=== PATIENT | female | born 1965 | race African-American/Black ===

== ENCOUNTER 2016-07-28 05:37 | Day surgery (SDC) | payer BC ==
--- NOTE | ~2016-07-28 | EGD ---
EGD REPORT [facility] [address] [place] [place] [address] NAME: ALVIN OSORIO : [birth year] STATUS : REG [facility] PAT#: [id number] AGE: 50 ADM/REG DATE : 07/28/16 MR#: [id number] REPORT SERV DATE: 07/28/16 DICTATED BY: KRISTIN BARON DATE: 07/28/16 REPORT STATUS : Draft TRANSCRIBED BY: [facility] DATE: 07/28/16 Endoscopy Center Patient Name: Alvin Osorio Date of : 1965 Attending MD: BRYANNA BARON MD Procedure Date No Time: 07/28/2016 Procedure: Upper GI endoscopy Indications: Hereditary nonpolyposis colorectal cancer (Tran Syndrome) Referring MD: REESE MARIN Medicines: See the Anesthesia note for documentation of the administered medications Complications: No immediate complications. Estimated blood loss: Minimal. Procedure: Pre-Anesthesia Assessment: - ASA Grade Assessment: III - A patient with severe systemic disease. - Prior to the procedure, a History and Physical was performed, and patient medications and allergies were reviewed. The patient's tolerance of previous anesthesia was also reviewed. The risks and benefits of the procedure and the sedation options and risks were discussed with the patient. All questions were answered, and informed consent was obtained. Prior Anticoagulants: The patient has taken aspirin, last dose was 1 day prior to procedure. After reviewing the risks and benefits, the patient was deemed in satisfactory condition to undergo the procedure. After obtaining informed consent, the endoscope was passed under direct vision. Throughout the procedure, the patient's blood pressure, pulse, and oxygen saturations were monitored continuously. The GIF [id number] was introduced through the mouth, and advanced to the third part of duodenum. The upper GI endoscopy was accomplished without difficulty. The patient tolerated the procedure well. Findings: A few diminutive sessile polyps with were found in the third part of the duodenum. The polyp was removed with a cold biopsy forceps. Resection and retrieval were complete. There is no endoscopic evidence of any abnormality of the ampulla at 2nd part of the duodenum. Two small sessile polyps with no stigmata of recent bleeding were found in the gastric fundus. These polyps were removed with a cold biopsy EGD REPORT [address] [place]. [address] NAME: ALVIN OSORIO : [birth year] STATUS : REG [facility] PAT#: [id number] AGE: 50 ADM/REG DATE : 07/28/16 MR#: [id number] REPORT SERV DATE: 07/28/16 DICTATED BY: KRISTIN BARON DATE: 07/28/16 REPORT STATUS : Draft TRANSCRIBED BY: [facility] DATE: 07/28/16 forceps. Resection and retrieval were complete. The cardia and gastric fundus were normal on retroflexion. No other significant abnormalities were identified in a careful examination of the stomach. The examined esophagus was normal. Impression: - A few duodenal polyps. Resected and retrieved. - Two gastric polyps. Resected and retrieved. - Normal esophagus. Recommendation: - Patient has a contact number available for emergencies. The signs and symptoms of potential delayed complications were discussed with the patient. Return to normal activities tomorrow. Written discharge instructions were provided to the patient. - Regular diet. - Discharge patient to home. - Await pathology results. - Repeat the upper endoscopy in 1 year for surveillance. Procedure Code(s): --- Professional --- 69831, Esophagogastroduodenoscopy, flexible, transoral; with biopsy, single or multiple Diagnosis Code(s): --- Professional --- K31.7, Polyp of stomach and duodenum C18.9, Malignant neoplasm of colon, unspecified Z15.09, Genetic susceptibility to other malignant neoplasm CPT copyright 2013 [employer]. All rights reserved. The codes documented in this report are preliminary and upon electric meter repairer review may be revised to meet current compliance requirements. BRYANNA BARON MD 07/28/2016 7:15 AM This report has been signed electronically. Number of Addenda: 0 Note Initiated On: 07/28/2016 7:00 AM Scope Withdrawal Time 0 hours 0 minutes 0 seconds [address] [id number]
--- NOTE | ~2016-07-28 | EGD ---
EGD REPORT [facility] [address] [place] [address] NAME: ALVIN OSORIO : [birth year] STATUS : REG [facility] [place] PAT#: [id number] AGE: 50 ADM/REG DATE : 07/28/16 MR#: [id number] REPORT SERV DATE: 07/28/16 DICTATED BY: KRISTIN BARON DATE: 07/28/16 REPORT STATUS : Draft TRANSCRIBED BY: [facility] DATE: 07/28/16 Endoscopy Center Patient Name: Alvin Osorio Date of : 1965 Attending MD: BRYANNA BARON MD Procedure Date No Time: 07/28/2016 Procedure: Colonoscopy Indications: High risk colon cancer surveillance: Personal history of colon cancer, Tran syndrome Referring MD: REESE MARIN Medicines: See the Anesthesia note for documentation of the administered medications Complications: No immediate complications. Estimated blood loss: None. Procedure: Pre-Anesthesia Assessment: - ASA Grade Assessment: III - A patient with severe systemic disease. - Prior to the procedure, a History and Physical was performed, and patient medications and allergies were reviewed. The patient's tolerance of previous anesthesia was also reviewed. The risks and benefits of the procedure and the sedation options and risks were discussed with the patient. All questions were answered, and informed consent was obtained. Prior Anticoagulants: The patient has taken aspirin, last dose was 1 day prior to procedure. After reviewing the risks and benefits, the patient was deemed in satisfactory condition to undergo the procedure. After I obtained informed consent, the scope was passed under direct vision. Throughout the procedure, the patient's blood pressure, pulse, and oxygen saturations were monitored continuously. The PCF [id number] was introduced through the anus and advanced to the terminal ileum. The rectum and ileocolonic anastamosis were photographed. The entire colon was examined. The colonoscopy was performed without difficulty. The patient tolerated the procedure well. The quality of the bowel preparation was adequate. Findings: The perianal and digital rectal examinations were normal. The ileum, 10 cm from the ileocecal anastomosis contained a benign-appearing, intrinsic moderate stenosis that was non-traversed. There was evidence of a prior end-to-end ileo-colonic anastomosis in the mid ascending colon. This was patent. This was characterized by healthy appearing mucosa. This was traversed. EGD REPORT [address] [place]. [address] NAME: ALVIN OSORIO : [birth year] STATUS : REG [facility]#: [id number] AGE: 50 ADM/REG DATE : 07/28/16 MR#: [id number] REPORT SERV DATE: 07/28/16 DICTATED BY: KRISTIN BARON DATE: 07/28/16 REPORT STATUS : Draft TRANSCRIBED BY: [employer] DATE: 07/28/16 Two sessile polyps were found in the rectum. The polyps were diminutive in size. These polyps were removed with a piecemeal technique using a cold biopsy forceps. Resection and retrieval were complete. Non-bleeding internal hemorrhoids were found during retroflexion and were Grade I (internal hemorrhoids that do not prolapse). No other significant abnormalities were identified in a careful examination of the remainder of the colon. 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 - Patent end-to-end ileo-colonic anastomosis. - Two diminutive polyps in the rectum. Resected and retrieved. - Non-bleeding internal hemorrhoids. Recommendation: - Patient has a contact number available for emergencies. The signs and symptoms of potential delayed complications were discussed with the patient. Return to normal activities tomorrow. Written discharge instructions were provided to the patient. - Regular diet. - Discharge patient to home. - Continue present medications. - Await pathology results. - Repeat colonoscopy in 1 year for surveillance. Procedure Code(s): --- Professional --- 17488, Colonoscopy, flexible, proximal to splenic flexure; with biopsy, single or multiple Diagnosis Code(s): --- Professional --- K56.69, Other intestinal obstruction Z98.0, Intestinal bypass and anastomosis status K62.1, Rectal polyp K64.0, First degree hemorrhoids Z85.038, Personal history of other malignant neoplasm of large intestine CPT copyright 2013 [employer]. All rights reserved. The codes documented in this report are preliminary and upon patent solicitor review may be revised to meet current compliance requirements. BRYANNA BARON MD 07/28/2016 7:31 AM This report has been signed electronically. EGD REPORT [facility] [address] [address] NAME: ALVIN OSORIO : [birth year] STATUS : REG [facility] PAT#: [id number] AGE: 50 ADM/REG DATE : 07/28/16 MR#: [id number] REPORT SERV DATE: 07/28/16 DICTATED BY: KRISTIN BARON DATE: 07/28/16 REPORT STATUS : Draft TRANSCRIBED BY: [employer] DATE: 07/28/16 Number of Addenda: 0 Note Initiated On: 07/28/2016 6:57 AM Scope Withdrawal Time 0 hours 0 minutes 0 seconds [address] [id number]
[~2016-07-28 05:37] MED LIST: ADVAIR250 INH; ASAB PO; BREO ELLIPTA INH; CYANO1000T PO; DIOVAN HC1 PO; GLUCPH PO; HARD NAILS PO; KAPIDEX60 MG PO; MEVACOR40 MG PO; MOBIC15 MG PO; MULTIPLE VIT PO; NIFEDIAC CC60 MG PO; PRILOSEC40 MG PO; PROAIR HFA INH; TRADJENTA5 MG PO; VITC500 PO; XYZAL5 MG PO; ZIAC5 PO; ZYRTEC ALLGY10 MG PO
== END 2016-07-28 23:59 | disposition home or self-care (01) ==
LOC: DMU 05:37
PROVIDERS: Internal Medicine Gastroenterology
PROC: 0DB68ZX Excision of Stomach, Via Natural or Artificial Opening Endoscopic, Diagnostic (ICD-10-PCS; 2016-07-28)
PROC: 0DBP8ZX Excision of Rectum, Via Natural or Artificial Opening Endoscopic, Diagnostic (ICD-10-PCS; principal; 2016-07-28 07:00)
PROC: 0DB98ZX Excision of Duodenum, Via Natural or Artificial Opening Endoscopic, Diagnostic (ICD-10-PCS; 2016-07-28 07:00)
DX: Z12.11 Encounter for screening for malignant neoplasm of colon (principal); K29.50 Unspecified chronic gastritis without bleeding; K62.1 Rectal polyp; K64.0 First degree hemorrhoids; I10 Essential (primary) hypertension; J45.909 Unspecified asthma, uncomplicated; K56.69 Other intestinal obstruction; E11.9 Type 2 diabetes mellitus without complications; K21.9 Gastro-esophageal reflux disease without esophagitis; Z86.73 Personal history of transient ischemic attack (TIA), and cerebral infarction without residual deficits; Z85.038 Personal history of other malignant neoplasm of large intestine; Z98.0 Intestinal bypass and anastomosis status; Z80.0 Family history of malignant neoplasm of digestive organs; Z88.5 Allergy status to narcotic agent; Z90.710 Acquired absence of both cervix and uterus; Z98.890 Other specified postprocedural states
CPT/HCPCS: 82962; 88305